=== PATIENT | male | born 1980 | race Caucasian/White ===

== ENCOUNTER 2020-07-13 09:31 | Emergency (ER) | payer SELFPAY ==
[~2020-07-13] VITALS: Ht 175.2 cm; Wt 70.3 kg
[~2020-07-13 09:31] MED LIST: AMOXICILLIN500 MG PO; AURALGAN 15 ML15 ML OT; KEFLEX500 MG PO; LEVAQUIN750 MG PO; NO DAILY MEDS; ROBITUSSIN AC 10 MG/ PO; VIBRAMYCIN100 MG PO; ZITHROMAX250 MG PO
[2020-07-13 10:39] LABS: BASO % 0.3 % (0.0-1.0); EOS % 0.4 % (1.0-4.0); HEMATOCRIT 44.4 % (42.0-52.0); LYMPH # 1.2 10*3/uL (1.3-4.4); LYMPH % 13.4 % (27.0-41.0); MEAN CORPUSCULAR HGB 29.3 pg (27.0-31.0); MEAN CORPUSCULAR HGB CONC 32.9 g/dl (33.0-37.0); MEAN PLATELET VOLUME 10.4 fl (9.6-12.3); MONO % 11.4 % (3.0-9.0); NEUT # 6.6 10*3/uL (2.3-7.9); NEUT % 74.3 % (47.0-73.0); PLATELET COUNT AUTOMATED 238 10*3/uL (130-400); RED BLOOD COUNT 4.99 10*6/uL (4.50-5.90); RED CELL DISTRI WIDTH 11.5 % (0-14.5); WHITE BLOOD COUNT 8.9 10*3/uL (4.8-10.8)
[2020-07-13 10:55] LABS: ACT PARTIAL THROMBO TIME 30.5 SECONDS (20.0-32.1)
[2020-07-13 10:58] LABS: ALBUMIN 3.7 gm/dl (3.1-4.5); BUN 16 mg/dl (7-24); CHLORIDE 102 mmol/L (98-107); CREATININE 0.78 mg/dL (0.70-1.30); LIPASE 98 U/L (73-393); POTASSIUM 4.3 mmol/L (3.5-5.1); SGOT/AST 11 IU/L (3-35); SGPT/ALT 12 U/L (12-78); SODIUM 136 mmol/L (136-145)
[2020-07-13 10:59] LABS: ALKALINE PHOSPHATASE 106 U/L (45-117); TOTAL PROTEIN 8.1 gm/dL (6.4-8.2); TROPONIN I < 0.015 ng/ml (<0.045)
[2020-07-13] MEDS ORDERED: ZITHROMAX250 MG PO (11:27)
[2020-07-13] MEDS ORDERED: Motrin,Rufen800 MG PO (11:27)
== END 2020-07-13 11:43 | disposition home or self-care (01) ==
LOC: ED 09:31
PROVIDERS: Emergency Medicine
DX: J18.9 Pneumonia, unspecified organism (principal); R09.1 Pleurisy; Z98.890 Other specified postprocedural states

== ENCOUNTER 2020-07-30 12:44 | Emergency (ER) | payer MEDICAID ==
[~2020-07-30] VITALS: Ht 175.2 cm; Wt 57.2 kg
[~2020-07-30 12:44] MED LIST changes: +Motrin,Rufen800 MG PO
[2020-07-30 13:23] LABS: BASO % 0.5 % (0.0-1.0); EOS # 0.1 10*3/uL (0.0-0.4); EOS % 1.6 % (1.0-4.0); HEMATOCRIT 39.1 % (42.0-52.0); LYMPH # 1.1 10*3/uL (1.3-4.4); LYMPH % 15.4 % (27.0-41.0); MEAN CELL VOLUME 86.7 fl (80.0-94.0); MEAN CORPUSCULAR HGB CONC 33.5 g/dl (33.0-37.0); MONO # 0.7 10*3/uL (0.1-1.0); MONO % 9.9 % (3.0-9.0); NEUT # 5.3 10*3/uL (2.3-7.9); NEUT % 72.2 % (47.0-73.0); PLATELET COUNT AUTOMATED 313 10*3/uL (130-400); RED BLOOD COUNT 4.51 10*6/uL (4.50-5.90); RED CELL DISTRI WIDTH 11.4 % (0-14.5); WHITE BLOOD COUNT 7.3 10*3/uL (4.8-10.8)
[2020-07-30 13:40] LABS: BUN 13 mg/dl (7-24); CHLORIDE 105 mmol/L (98-107); CREATININE 0.74 mg/dL (0.70-1.30); POTASSIUM 3.8 mmol/L (3.5-5.1); SODIUM 138 mmol/L (136-145)
[2020-07-30 13:42] LABS: TROPONIN I < 0.015 ng/ml (<0.045)
[2020-07-30 17:59] LABS: ACT PARTIAL THROMBO TIME 30.4 SECONDS (20.0-32.1)
== END 2020-07-31 05:30 | disposition short-term general hospital (02) ==
LOC: ED 12:44
PROVIDERS: Emergency Medicine
DX: I26.99 Other pulmonary embolism without acute cor pulmonale (principal); R91.8 Other nonspecific abnormal finding of lung field; G93.89 Other specified disorders of brain; Z79.899 Other long term (current) drug therapy; Z98.890 Other specified postprocedural states